=== PATIENT | male | born 1985 | race Two or more races ===

== ENCOUNTER 2018-10-31 17:04 | Emergency (ER) | payer SELFPAY ==
--- NOTE | 2018-10-31 17:33 | ER Document Report ---
ED Medical Screen (RME) - General Chief Complaint: Chest Pain Stated Complaint: CHEST PAIN Time Seen by Provider: 10/31/18 17:30 Mode of Arrival: Ambulatory Information source: Patient Notes: 33-year-old male presented to ED for rapid heartbeat while at work today. He states he works at work on this. He states he felt like his heart was racing or bad. He states similar thing happened about 3 weeks ago and his boss told him to keep on working there is nothing wrong with him. He states 1 of his friends today told him that with a rapid heartbeat he needed to come to the hospital and father what was going on. He states around 1:00 today his heartbeat started racing and lasted for about an hour and a half he has heart rate is 130 right now. He is afebrile at 98.3. His O2 sat is 100%. EKG does show a heart rate of 123. He denies any nausea or vomiting or dizziness. He states his chest does have some mild pain right now. I have greeted and performed a rapid initial assessment of this patient. A comprehensive ED assessment and evaluation of the patient, analysis of test results and completion of medical decision making process will be conducted by an additional ED providers. TRAVEL OUTSIDE OF THE [place] IN LAST 30 DAYS: No - Related Data Allergies/Adverse Reactions: No Known Allergies Allergy (Verified 10/31/18 17:06) Physical Exam - Vital signs Vitals: Temp Pulse Resp BP Pulse Ox 98.6 F 121 H 20 135/86 H 96 10/31/18 17:25 10/31/18 17:25 10/31/18 17:25 10/31/18 17:25 10/31/18 17:25 Course - Vital Signs Vital signs: Temp Pulse Resp BP Pulse Ox 98.6 F 121 H 20 135/86 H 96 10/31/18 17:25 10/31/18 17:25 10/31/18 17:25 10/31/18 17:25 10/31/18 17:25
[2018-10-31] MEDS ORDERED: ASPIRIN 81 MG TABLET, CHEWABLE PO ONE (17:34)
[2018-10-31] MEDS ORDERED: NORMAL SALINE 1000 ML 1,000 ML IV ONE ×2 (17:59→20:33)
--- NOTE | 2018-10-31 18:02 | RADIOLOGY REPORT (SQ) ---
EXAM DESCRIPTION: CHEST 2 VIEWS COMPLETED DATE/TIME: 10/31/2018 5:48 pm REASON FOR STUDY: chest pain palpitations COMPARISON: None. EXAM PARAMETERS: NUMBER OF VIEWS: two views TECHNIQUE: Digital Frontal and Lateral radiographic views of the chest acquired. RADIATION DOSE: NA LIMITATIONS: none FINDINGS: LUNGS AND PLEURA: No opacities, masses or pneumothorax. No pleural effusion. MEDIASTINUM AND HILAR STRUCTURES: No masses or contour abnormalities. HEART AND VASCULAR STRUCTURES: Heart normal size. No evidence for failure. BONES: No acute findings. HARDWARE: None in the chest. OTHER: No other significant finding. IMPRESSION: NO ACUTE RADIOGRAPHIC FINDING IN THE CHEST. TECHNICAL DOCUMENTATION: JOB ID: [id number] [id number] [employer]- All Rights Reserved Reading location - IP/workstation name: [email or web address]
--- NOTE | 2018-10-31 18:34 | ER Document Report ---
Entered by LARISSA LONGORIA SCRIBE 10/31/18 [id number] Acting as scribe for:SADIA BOOGIE MD ED Cardiac - General Chief Complaint: Chest Pain Stated Complaint: CHEST PAIN Time Seen by Provider: 10/31/18 17:30 Mode of Arrival: Ambulatory Information source: Patient Notes: 33 year old male that presents to the emergency department today with complaints of a heart racing sensation with associated chest pain which began at around 1300 this afternoon. Patient states he had the same exact symptoms about x3 weeks ago but it only lasted for about an hour at that time. Patient states prior to this episode x3 weeks ago, he has never had this happen in the past. Patient states he has no family history of coronary artery disease, stating his parents are in their 50s and both in good health, and both grandparents lived into their 90s. Patient denies any shortness of breath. TRAVEL OUTSIDE OF THE [place] IN LAST 30 DAYS: No - Related Data Allergies/Adverse Reactions: No Known Allergies Allergy (Verified 10/31/18 17:06) Past Medical History - General Information source: Patient - Social History Smoking Status: Never Smoker Cigarette use (# per day): No Chew tobacco use (# tins/day): No Smoking Education Provided: No Frequency of alcohol use: Social Drug Abuse: None Occupation: passenger [employer] Family History: Reviewed & Not Pertinent Review of Systems - Review of Systems Constitutional: No symptoms reported EENT: No symptoms reported Cardiovascular: See HPI, Chest pain, Heart racing Respiratory: denies: Short of breath Gastrointestinal: No symptoms reported Genitourinary: No symptoms reported Male Genitourinary: No symptoms reported Musculoskeletal: No symptoms reported Skin: No symptoms reported Hematologic/Lymphatic: No symptoms reported Neurological/Psychological: No symptoms reported -: Yes All other systems reviewed and negative Physical Exam - Vital signs Vitals: Temp Pulse Resp BP Pulse Ox 98.6 F 121 H 20 135/86 H 96 10/31/18 17:25 10/31/18 17:25 10/31/18 17:25 10/31/18 17:25 10/31/18 17:25 - Notes Notes: Physical Exam: General: Alert, appears well. HEENT: Normocephalic. Atraumatic. PERRL. Extraocular movements intact. O ropharynx clear. Neck: Supple. Non-tender. Respiratory: No respiratory distress. Clear and equal breath sounds bilaterally. Cardiovascular: Tachycardic into the 120s. Regular rhythm. Abdominal: Obese. Non-tender. No distension. Normal Bowel Sounds. Back: No gross abnormalities. Extremities: Moves all four extremities. Upper extremities: Normal inspection. Normal ROM. Lower extremities: Normal inspection. No edema. Normal ROM. Neurological: Normal cognition. AAOx4. Normal speech. Psychological: Normal affect. Normal Mood. Skin: Warm. Dry. Normal color. Course - Re-evaluation Re-evalutation: 10/31/18 22:04 Patient's lab work suggests that he is dehydrated. His heart rate has now come down to 90 and he does feel better. - Vital Signs Vital signs: Temp Pulse Resp BP Pulse Ox 98.6 F 117 H 16 118/57 L 98 10/31/18 17:25 10/31/18 17:56 10/31/18 20:00 10/31/18 19:01 10/31/18 17:56 - Laboratory Result Diagrams: 10/31/18 18:37 10/31/18 18:37 Laboratory results interpreted by me: 10/31/18 10/31/18 10/31/18 18:37 18:37 18:37 WBC 11.5 H Absolute Neuts (auto) 8.4 H Glucose 134 H Calcium 10.7 H Creatine Kinase 174 H Total Protein 8.7 H Albumin 5.2 H Urine Protein 100 H Urine Ketones TRACE H - EKG Interpretation by Ca EKG shows normal: Sinus rhythm, [place], Intervals, QRS Complexes. abnormal: ST-T Waves - Abnormal inferior T's, ST elevation with probably early repolarization pattern Rate: Tachycardia - 123 [place]/QRS: Right axis deviation When compared to previous EKG there are: Previous EKG unavailable Discharge - Discharge Clinical Impression: Tachycardia, Dehydration Condition: Stable Disposition: HOME, SELF-CARE Additional Instructions: Your lab work suggests that you have not been drinking nearly enough water and are a little bit dehydrated. The dehydration is the likely cause of the fast heart rate that you have been experiencing. You should drink plenty of fluids in the morning before you start work, and drink plenty of fluids throughout the day while you are working. If you find that you are not having to stop and urinate at least every 2 hours during the day, then you are not drinking nearly enough fluids. Follow-up with a local medical doctor if you continue to have problems. RETURN TO THE EMERGENCY ROOM IF ANY NEW OR WORSENING SYMPTOMS. [place] Attestation: 10/31/18 18:34 I personally performed the services described in the documentation, reviewed and edited the documentation which was dictated to the scribe in my presence, and it accurately records my words and actions. I personally performed the services described in the documentation, reviewed and edited the documentation which was dictated to the scribe in my presence, and it accurately records my words and actions.
[2018-10-31 19:18] LABS: APPEARANCE,URINE CLEAR; BILIRUBIN,URINE NEGATIVE (NEGATIVE); COLOR,URINE YELLOW; GLUCOSE, URINE NEGATIVE (NEGATIVE); KETONES,URINE TRACE mg/dL (NEGATIVE); LEUKOCYTE ESTERASE,URINE NEGATIVE (NEGATIVE); NITRITE,URINE NEGATIVE (NEGATIVE); PROTEIN,URINE 100 mg/dL (NEGATIVE); URINE SPECIFIC GRAVITY 1.032; UROBILINOGEN,URINE NEGATIVE mg/dL (<2.0)
[2018-10-31 19:19] LABS: ABSOLUTE BASOPHILS # (AUTO) 0.1 10^3/uL (0.0-0.2); ABSOLUTE EOSINOPHILS # (AUTO) 0.4 10^3/uL (0.0-0.6); ABSOLUTE MONOCYTES (AUTO) 0.7 10^3/uL (0.1-1.4); ABSOLUTE NEUT (AUTO) 8.4 10^3/uL (1.7-8.2); BASOPHILS % (AUTO) 0.5 % (0-2); EOSINOPHILS % (AUTO) 3.6 % (0-6); HEMATOCRIT 45.7 % (37.9-51.0); HEMOGLOBIN 15.5 g/dL (13.5-17.0); LYMPHOCYTES % (AUTO) 17.3 % (13-45); MEAN CORPUSCULAR HEMOGLOBIN 29.1 pg (27.0-33.4); MEAN CORPUSCULAR HGB CONC 33.8 g/dL (32.0-36.0); MEAN CORPUSCULAR VOLUME 86 fl (80-97); MONOCYTES % (AUTO) 5.7 % (3-13); PLATELET COUNT 244 10^3/uL (150-450); RED BLOOD COUNT 5.32 10^6/uL (4.35-5.55); RED CELL DISTRIBUTION WIDTH 13.7 % (11.5-14.0); SEGMENTED NEUTROPHILS % (AUTO) 72.9 % (42-78); TOTAL CELLS COUNTED % (AUTO) 100 %; WHITE BLOOD COUNT 11.5 10^3/uL (4.0-10.5)
[2018-10-31 19:29] LABS: INTERNATIONAL RATION (INR) 0.95; PROTHROMBIN TIME 12.6 SEC (11.4-15.4)
[2018-10-31 19:30] LABS: PARTIAL THROMBOPLASTIN TIME 25.6 SEC (23.5-35.8)
[2018-10-31 19:35] LABS: ALBUMIN 5.2 g/dL (3.5-5.0); ALKALINE PHOSPHATASE 115 U/L (38-126); ANION GAP 17 (5-19); ASPARTATE AMINO TRANSFERASE 40 U/L (17-59); BILIRUBIN,DIRECT 0.2 mg/dL (0.0-0.4); BILIRUBIN,TOTAL 0.4 mg/dL (0.2-1.3); BLOOD UREA NITROGEN 20 mg/dL (7-20); CALCIUM 10.7 mg/dL (8.4-10.2); CARBON DIOXIDE 24 mmol/L (22-30); CHLORIDE 100 mmol/L (98-107); CREATINE KINASE 174 U/L (55-170); GLUCOSE 134 mg/dL (75-110); POTASSIUM 3.9 mmol/L (3.6-5.0); TOTAL PROTEIN 8.7 g/dL (6.3-8.2)
[2018-10-31 19:40] LABS: URINE AMPHETAMINES SCREEN NEGATIVE; URINE BARBITURATES SCREEN NEGATIVE; URINE BENZODIAZEPINES SCREEN NEGATIVE; URINE COCAINE SCREEN NEGATIVE; URINE MARIJUANA (THC) SCREEN NEGATIVE; URINE METHADONE SCREEN NEGATIVE; URINE PHENCYCLIDINE SCREEN NEGATIVE
[2018-10-31 19:47] LABS: CREATINE KINASE MB 1.08 ng/mL (<4.55); NT PRO BNP 18 pg/mL (<125)
[2018-10-31 19:48] LABS: TROPONIN I < 0.012 ng/mL
[2018-10-31 19:53] LABS: FREE T3 3.56 pg/mL (2.77-5.27); FREE T4 (FREE THYROXINE) 1.08 ng/dL (0.78-2.19)
[2018-10-31 20:06] LABS: THYROID STIMULATING HORMONE 1.08 uIU/mL (0.47-4.68)
[2018-10-31 22:14] VITALS: BP 119/72
--- NOTE | 2018-11-01 08:12 | EKG REPORT ---
SEVERITY:- ABNORMAL ECG - SINUS TACHYCARDIA RIGHT AXIS DEVIATION ABNORMAL T, PROBABLE ISCHEMIA, INFERIOR LEADS ST ELEV, PROBABLE NORMAL EARLY REPOL PATTERN : Confirmed by: Sayda Dela Cruz MD 01-Nov-2018 08:12:05
== END 2018-10-31 22:14 | disposition home or self-care (01) ==
LOC: ER 17:04
DX: R00.0 Tachycardia, unspecified (principal); E86.0 Dehydration; R07.9 Chest pain, unspecified
CPT/HCPCS: 93005; 36415; 84439; 82553; 82550; 84443; 85025; 85610; 85730; 80053; 81001; 84484; 80307; 84481; 83880; 71046; 93010; J7030